=== PATIENT | female | born 1980 | race Caucasian/White ===

== ENCOUNTER 2023-07-12 00:49 | Emergency (ER) | payer OTHER ==
[~2023-07-12] VITALS: Ht 157.5 cm; Wt 70.0 kg
[2023-07-12 00:59] VITALS: O2SAT 98
[2023-07-12] MEDS ORDERED: DIPHENHYDRAMINE 50MG CAPSULE PO ONE (01:30)
[2023-07-12] MEDS: FAMOTIDINE 20MG TABLET PO SCH (01:44)
[2023-07-12] MEDS: DIPHENHYDRAMINE 25MG CAPSULE PO NR (01:45)
[2023-07-12] MEDS: PREDNISONE 20MG TABLET PO ONE (01:45)
[2023-07-12] MEDS: TETRACAINE 0.5% OPHTH DROPS 4ML BOTHEYE ONE (01:45)
[2023-07-12] MEDS ORDERED: FLUORESCEIN SODIUM 1MG/STRIP BOTHEYE ONE (03:15)
[2023-07-12] MEDS ORDERED: ERYT1OIN6 EACHEYE (03:34)
[2023-07-12 04:26] VITALS: BP 109/68; PULSE 69; RESP 15; TEMP 98
== END 2023-07-12 04:34 | disposition home or self-care (01) ==
LOC: ER 00:49
DX: S05.02XA Injury of conjunctiva and corneal abrasion without foreign body, left eye, initial encounter (principal); S05.01XA Injury of conjunctiva and corneal abrasion without foreign body, right eye, initial encounter; J45.909 Unspecified asthma, uncomplicated; I10 Essential (primary) hypertension; Z88.0 Allergy status to penicillin; Z88.8 Allergy status to other drugs, medicaments and biological substances; X58.XXXA Exposure to other specified factors, initial encounter; Y93.89 Activity, other specified; Y92.89 Other specified places as the place of occurrence of the external cause; Y99.8 Other external cause status
CPT/HCPCS: 99284; Q0163; J7512